=== PATIENT | female | born 1965 | race African-American/Black ===

== ENCOUNTER → 2020-04-07 | Outpatient (CLI) | payer OTHER ==
--- NOTE | 2020-04-07 15:24 | RAD ---
DATE: 04/07/2020 1:20 PM EXAM: DIGITAL DIAGNOSTIC mammogram BILATERAL, BREAST ultrasound RIGHT HISTORY: 54-year-old woman with palpable area of concern in the upper inner quadrant right breast, at the approximate 2:00 position 10 cm from the nipple. This is noted by both patient herself and by her referring clinician. COMPARISON: 01/03/2018 Bilateral full field craniocaudal and mediolateral oblique images were obtained using digital technique. Targeted ultrasound of the upper inner quadrant right breast was then pursued. This study was interpreted with the benefit of Computerized Aided Detection (CAD). FINDINGS: Breast Density: SCATTERED The breast parenchyma shows scattered fibroglandular densities. Breast parenchyma level B No suspicious masses, microcalcifications or architectural distortion is present to suggest malignancy in either breast. No mammographic correlate to the area of palpable concern in the upper inner right breast was observed. This was pursued with targeted ultrasound showing no sonographic abnormality. [employer] sonographic images were acquired in the right 2:00 position between 2 and 12 cm from the nipple. Sonographic survey of the right axilla was also performed showing no sonographic abnormality. The visualized axillae are unremarkable. IMPRESSION: Negative bilateral mammogram and targeted right breast ultrasound. No evidence of malignancy. BI-RADS CATEGORY: 1 NEGATIVE RECOMMENDED FOLLOW-UP: 12M 12 MONTH FOLLOW-UP Annual screening mammography is recommended, unless clinically indicated sooner based on symptoms or change in physical exam. In particular, any clinically suspicious finding should be considered for biopsy even in the absence of an imaging correlate. PQRS compliance statement: Patient information was entered into a reminder system with a target due date for the next mammogram. Mammography is a sensitive method for finding small breast cancers, but it does not detect them all and is not a substitute for careful clinical examination. A negative mammogram does not negate a clinically suspicious finding and should not result in delay in biopsying a clinically suspicious abnormality. "Our facility is accredited by the [employer] Mammography [employer]."
== END ==
LOC: MAMMO 13:13
PROVIDERS: ATTEND Nurse Practitioner Family
DX: N64.4 Mastodynia (principal)
CPT/HCPCS: 76641; 77066